=== PATIENT | male | born 1970 | race Caucasian/White ===

== ENCOUNTER 2020-06-12 10:30 | Outpatient (RCR) | payer OTHER, SELFPAY ==
--- NOTE | 2020-05-24 16:28 | PCPTNOTE ---
Electrical stim removed from Plan of care due to pt PMH of lung nodules that they are watching and 50# wt loss that is unexplained. Discussed with pt by Shruthi Morin and instructed him NOT to use his home TENS.
--- NOTE | 2020-06-10 08:21 | PCPTNOTE ---
Pt called and canceled appointment this date due to being awake all night because of pain.
--- NOTE | 2020-06-12 11:22 | PTOPEVAL ---
PHYSICAL THERAPY RE-EVALUATION and HOLD of PT treatment 06-12-2020 Madan has received 8 PT sessions, from May 16 to today. His called and canceled one session, due to not sleeping and having more pain. Compared to the initial evaluation: his pain rating is worst; walking test for 2 minutes is less distance; 5 reps sit/stand is few seconds less; hamstring length and LE strength are about the same; Traction and heat did give him some temporary relief from the back pain, but he feels it may have increased his pain later in the day. Discussed with him aquatic exercises as an option for continued therapy. He wants to see the neurosurgeon and see what the recommendations are from neurosurgeon. Madan will continue to use heat, stretching and positional changes as ways to help manage his pain. Will HOLD PT at this time. If PT is to continue, he will need additional PT orders to resume therapy. His chart will be kept open for 4 weeks, if orders are not received, he will be discharged at that time. Please review, sign, date and return this reevaluation report RONALD. I agree with and certify that the following plan of care is medically necessary. Referring Physician Date Attending Provider: DARREN Carey *PT Outpatient Re- Evaluation Document 06/12/20 10:35 ZACHARY (Rec: 06/12/20 11:22 ZACHARY [id number]) Subjective Information Madan reports: back is worse Query Text:As Reported By Patient/ the past few days, not sure Family why--did not do anything to hurt it; more problems with sleeping and moving; does not yet have the appointment time for the neurosurgeon referral ; Oswestry self assessment functional score 70%; He voiced frustration with the continued pain and burning that limits what he can do feel helpless and worthless-- cannot do anything around the house but dishes and cannot work . Pain Assessment Timing of Pain Assessment Timing of Pain Assessment Assessment Pain Scale Pain Scale Used Numeric (1 - 10) Self Report Pain Assessment Bilateral Lower Back Reported Pain Level 8 Radicular Pain Location B lateral hips to anterior thighs to above knees- constant burning Pain Frequency Chronic Lowest Pain Intensity 8 Greatest Pain Intensity 9 Pain Score Pain Score 8: Self Report Lower Extremity Range of Motion General Lower Extremity Range of Motion Gross Lower Extremity Range of Motion supine hamstring length with Comments 90-90 position: R and L 60'; supine trunk rotation to R
--- NOTE | 2020-07-19 11:15 | PCPTNOTE ---
PHYSICAL THERAPY DISCHARGE 07-19-2020 Attending Provider: Wendy Kim, [employer]ER-BC Patient:Madan Gerber Date of :1970 Madan has not returned with additional PT orders, for any further treatments since the reevaluation on 06/12/2020, therefore he will be discharged at this time. Refer to the reevaluation for his status at the last session. Thank you for referring Mr. Gerber to [facility]. Please review, sign, date and return this discharge summary RONALD. I have been updated about the patient's current status and I agree with discharge from the above service at this time. Referring Physician Date
== END 2020-07-22 09:17 | disposition home or self-care (01) ==
LOC: ANHPT 10:30
PROVIDERS: PCP Nurse Practitioner Family; Visit Provider Nurse Practitioner Family
DX: M54.16 Radiculopathy, lumbar region (principal); M48.061 Spinal stenosis, lumbar region without neurogenic claudication
CPT/HCPCS: 97012; 97014; 97110; 97161; G0283

== ENCOUNTER 2020-11-22 10:09 | Observation (INO) | payer OTHER, SELFPAY ==
[2020-11-22] VITALS (24 sets, daily range): BP systolic 149–177; BP diastolic 68–98; PULSE 66–78; RESP 14–21; TEMP 35.9–36.6; O2SAT 96–100
--- NOTE | ~2020-11-22 | CT_ITS ---
EXAMINATION: CT brain wo con EXAM DATE: 11/22/2020 12:08 INDICATION: Slurred speech. TECHNIQUE: Spiral CT of the head was performed without contrast. Axial, coronal and sagittal images were reviewed. The dose-length product (DLP) for this examination was 681.00 mGy-cm. The exposure w as tailored according to patient size, and iterative reconstruction (ASIR) was used as additional dos e reduction technique. There is no prior study for comparison. FINDINGS: There is no acute intraparenchymal hemorrhage. No evidence of intraparenchymal brain mass lesion. No evidence of acute infarction. Please note that initial head CT has limited sensitivity f or small or acute infarctions. There is moderate periventricular and subcortical hypodensity, nonspec ific but probably related to small vessel ischemic disease. There is mild prominence of the sulci a nd ventricles related to cerebral atrophy. There is intracranial carotid arteriosclerosis. There a re no extra-axial collections. There is no mass effect or midline shift. The orbits are unremarkabl e. Soft tissue is unremarkable. The visualized sinuses and mastoid air cells are well aerated. IMPRESSION: 1. No acute intracranial findings. 2. 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 Reviewed, dictated and finalized at location B. ING MANAGER
--- NOTE | ~2020-11-22 | XR_ITS ---
EXAMINATION: XR chest 1V portable EXAM DATE: 11/22/2020 11:15 INDICATION: Transient alteration of awareness. TECHNIQUE: Portable AP frontal chest x-ray was obtained. Comparison is made to prior examination from 05/10/2019. FINDINGS: The lungs are clear. There are no pleural effusions. Cardiac silhouette is prominent but magnified on this AP technique. There is no pneumothorax suspected. The bones and soft tissues are unremarkable. IMPRESSION: No acute cardiopulmonary findings. Reviewed, dictated and finalized at location B. FERRIER
--- NOTE | 2020-11-22 10:33 | ECG_ITS ---
Measurements Intervals [place] Rate: 77 P: 39 [place]: 179 QRS: -10 QRSD: 104 T: 21 QT: 362 QTc: 410 Interpretive Statements SINUS RHYTHM CONSIDER INFERIOR INFARCT, AGE INDETERMINATE BORDERLINE ST-T WAVE ABNORMALITY- LATERAL LEADS ABNORMAL ECG Electronically Signed On 11-22-2020 10:45:25 PBX TECHNICIAN by Ricardo Engle D.O.
--- NOTE | 2020-11-22 10:33 | ED.AMS ---
HPI - Altered Mental Status General Chief Complaint: Syncope Stated Complaint: SYNCOPE, SLURRED SPEECH Time Seen by Provider: 11/22/20 10:25 History of Present Illness HPI narrative: 50 yo male w/ h/o DM presents to the ED for AMS. Last known normal was last night. When his left for work this morning he was still in bed. She returned home around 9 to find him face down on the bedroom floor. She was able to wake him up, and get him back into bed, but he was acting strange and confused. Seemed to clear briefly, but now confused again. He is only occasionally answering my questions. He is not able to provide any details. History limited by mental status Related Data Home Medications Medication Instructions Recorded Confirmed amlodipine 10 mg PO DAILY 11/22/20 11/22/20 atorvastatin 10 mg PO HS 11/22/20 11/22/20 diclofenac sodium 75 mg PO DAILY 11/22/20 11/22/20 gabapentin 1,200 mg PO HS 11/22/20 11/22/20 gabapentin 300 mg PO BID 11/22/20 11/22/20 hydrocodone-acetaminophen 1 tablet PO TID 11/22/20 11/22/20 insulin glargine [Lantus U-100 10 unit SUBCUT HS 11/22/20 11/22/20 Insulin] sitagliptin [Januvia] 100 mg PO DAILY 11/22/20 11/22/20 Allergies Allergy/AdvReac Type Severity Reaction Status Date / Time No Known Allergies Allergy Verified 11/22/20 16:47 Review of Systems Review of Systems: ROS unobtainable: Yes unobtainable due to mental status PMFSH Past Medical History Medical History (Updated 11/22/20 @ 18:23 by Jorge Tarango MD) Diabetes mellitus HTN (hypertension) Social History Social History Smoking packs per day: 1 Smoking cigarettes per day: 20.0 Years smoked: 30 Smoking pack-years: 30.00 Smoking status: Current every day smoker Tobacco type: cigarettes Alcohol intake: never Substance use: never Substance use type: does not use Gender identity (if verbalized by the patient): Male Spiritual care concerns: No Exam Const: General: no acute distress and confusion Nutritional Appearance: well nourished Other: lethargic HENMT: Head: normal to inspection Mouth: Yes moist mucous membranes Eyes: Conjunctivae: conjunctivae normal Pupils: Equal, round and reactive pupils present EOM: EOMs intact bilaterally Resp: Effort & Inspection: normal respiratory effort Auscultation: clear to auscultation bilaterally Cardio: Rate: regular rate Rhythm: regular rhythm GI: GI Palp: Yes Soft to palpation and No Tenderness to palpation present (GI) Skin: General skin exam: normal color Rashes: no rashes Wounds: no wounds Neuro: General: moves all extremities and CN's II-XI intact bilaterally Cranial nerves: Yes Nystagmus not present Other: oriented x2 paucity of speech. Poor effort on strength testing Extrem: General: normal to inspection and no edema Course Vital Signs Vital signs: Vital Signs Temperature 36.6 C 11/22/20 10:22 Pulse Rate 74 11/22/20 10:22 Respiratory Rate 20 11/22/20 10:22 Blood Pressure 173/69 H 11/22/20 10:22 Pulse Oximetry 96 11/22/20 10:22 Temperature 35.9 C L 11/22/20 15:21 Pulse Rate 74 11/22/20 16:00 Respiratory Rate 18 11/22/20 15:21 Blood Pressure 177/74 H 11/22/20 15:21 Pulse Oximetry 99 11/22/20 15:21 MDM - Altered Mental Status MDM Narrative Medical decision making narrative: Work-up largely negative. Cannot rule out CVA. symptoms seem to wax and wane. Could be volitional. Medical Records Attestation: I reviewed the patient's medical records. Lab Data Attestation: I reviewed the patient's lab results. Result diagrams: 11/22/20 10:41 11/22/20 10:41 Labs: Lab Results 11/22/20 11/22/20 11/22/20 Range/Units 10:25 10:41 10:41 WBC 8.4 (4.5-10.0) K/mm3 RBC 5.45 (4.6-6.20) M/mm3 Hgb 16.5 (14.0-18.0) g/dL Hct 46.7 (42.0-52.0) % MCV 85.7 (80-100) fl MCH 30.3 (26-34) pg MCHC 35.3 (32-36) g/dl RDW 12.7 (11.5-14.5) % Plt Coun
[2020-11-22 10:50] LABS: Basophils Percent Auto 0.5 % (0.2-1.2); Eosinophils Absolute Auto 0.4 K/mm3 (0-0.3); Eosinophils Percent Auto 4.4 % (0-4.4); Hematocrit 46.7 % (42.0-52.0); Hemoglobin 16.5 g/dL (14.0-18.0); Immature Granulocyte Absolute 0.03 K/mm3 (0.00-0.031); Immature Granulocyte Percent A 0.4 % (0-0.5); Lymphocytes Absolute Auto 1.75 K/mm3 (0.9-3.2); Lymphocytes Percent Auto 20.8 % (18.3-44.2); Mean Corpuscular HGB Conc 35.3 g/dl (32-36); Mean Corpuscular Hemoglobin 30.3 pg (26-34); Mean Corpuscular Volume 85.7 fl (80-100); Mean Platelet Volume 8.9 fl (7.4-10.4); Monocytes Absolute Auto 0.6 K/mm3 (0.1-0.6); Neutrophils Absolute Auto 5.7 K/mm3 (1.3-6.7); Neutrophils Percent Auto 66.9 % (45.5-73.1); Platelet Count Result 263 k/mm3 (150-375); Red Blood Count 5.45 M/mm3 (4.6-6.20); Red Cell Distribution Width 12.7 % (11.5-14.5); White Blood Count 8.4 K/mm3 (4.5-10.0)
[2020-11-22 11:02] LABS: Add Urine Microscopic? YES; Appearance Urine Clear (Clear); Bilirubin Urine Negative (Negative); Blood Urine Negative (Negative); Color Urine Yellow (Yellow); Glucose Urine UA 3+ mg/dL (Negative); Ketones Urine Negative (Negative); Leukocyte Esterase Ur Negative LEU/UL (Negative); Mucus Urine Rare /lpf; Nitrate Urine Negative (Negative); Protein Urine Negative (Negative); Specific Grav Ur 1.037 (1.001-1.035); WBC Urine 0-3 /hpf
[2020-11-22 11:02] LABS: Alveolar/Arterial O2 Gradient 33.6 mmHg; Base Excess ABG -2.1 mEq/l (+/-2.0); Fractional Inspired Oxygen 21 %; Oxygen Content ABG 19.7 %vol (16.0-22.0); Oxygen Saturation ABG 94.9 % (95.0-100.0); Oxyhemoglobin 89.3 % THb (90.0-100.0); PO2 FiO2 Ratio Arterial Blood 3.48 %; Total Hemoglobin 15.7 g/dL (12.0-18.0); pH ABG 7.404 (7.350-7.450)
[2020-11-22 11:02] LABS: INR 0.9; Partial Thromboplastin Time 23.8 SECONDS (22.3-36.8)
[2020-11-22 11:03] LABS: Device ROOM AIR; Modified Allen's Test Pass; Site Drawn LEFT RADIAL
[2020-11-22 11:05] LABS: Ammonia < 9 umol/L (9-30); Ethanol < 10 mg/dL (<10)
[2020-11-22 11:06] LABS: Alanine Aminotransferase 24 U/L (4-50); Albumin Level 4.1 g/dL (3.5-5.1); Alkaline Phosphatase 72 U/L (38-126); Anion Gap 6 mmol/L (8-16); Aspartate Amino Transferase 23 U/L (17-59); Bilirubin,Total 0.5 mg/dL (0.2-1.3); Blood Urea Nitrogen 10 mg/dL (9-20); Calcium 8.9 mg/dL (8.4-10.2); Carbon Dioxide 26 mmol/L (22-30); Chloride 104 mmol/L (98-107); Estimated Glomerular Filt Rate > 60; Glucose 258 mg/dL (75-110); Potassium 4.1 mmol/L (3.4-5.0); Sodium 136 mmol/L (137-145)
[2020-11-22 11:06] LABS: Lactic Acid Reflex 1.8 mmol/L (0.7-2.1)
[2020-11-22 11:08] LABS: Glucose Point of Care 243 (65-105)
--- NOTE | 2020-11-22 14:30 | PM.IMHP ---
H&P: HPI History of Present Illness Date/Time: 11/22/20 14:30 Chief Complaint: Altered mental status. Narrative: This is a 50-year-old male with insulin-dependent diabetes, hypertension, dyslipidemia, and peripheral vascular disease who presented to the emergency department earlier today via private vehicle from home with reports of altered mental status. He was in his usual state of health when he went to bed last night. His got up this morning left for work at about 07:45 and at that time the patient was still sleeping. About 2 hours later she tried to contact him and he did not respond, so she went home to check on him and he was found face down on the floor in her bedroom. She tried to wake him up by shaking him however he was unresponsive but eventually came to. He then was slurring his speech and seemed to be confused, prompting her to bring him to the hospital for evaluation. He does not recall how he got on the floor today but he is alert and oriented x4 at the time my evaluation. There was no mention of bowel or bladder incontinence and no evidence of injury or tongue bite. He does not have many complaints at the time my evaluation aside from the fact that he does not want to stay in the hospital. He denies recent change in medication, alcohol use, and drug use. No history of syncope or seizure. No recent cold or flu symptoms. He denies headache, focal weakness, and paresthesias. No dysphagia or dysarthria (although I do appreciate some mild slurred speech). Review of Systems Review of Systems: Narrative: 12 systems were reviewed with pertinent positives and negatives as per HPI. No recent cold or flu symptoms. He denies fever, chills, and sweats. He suffers from claudication of his lower extremities due to peripheral vascular disease and is followed by Dr. Stark in [place]. As of yet they have not done any intervention on that. He has pretty significant paresthesias in his feet and especially his toes due to neuropathy from the diabetes. No blurry vision, polydipsia, or polyuria. Except as documented, all other systems were reviewed and are negative. [facility] Past Medical History Medical History (Updated 11/22/20 @ 21:22 by Dana Aguilar PA-C) Chronic back pain Diabetic peripheral neuropathy Dyslipidemia Essential hypertension Insulin dependent type 2 diabetes mellitus Peripheral vascular disease Tobacco abuse Surgical History Surgical History (Updated 11/22/20 @ 20:48 by Dana Aguilar PA-C) History of hemorrhoidectomy History of lymph node biopsy With benign pathology. History of tonsillectomy Family History Family History (Updated 11/22/20 @ 20:49 by Dana Aguilar PA-C) Mother Hypertension Sibling Acute myocardial infarction Heart disease Social History Social History (Updated 11/22/20 @ 20:50 by Dana Aguilar PA-C) Social History: Surrogate decision maker: Goldie Gerber, . Code status: Full code. Smoking packs per day: 1 Smoking cigarettes per day: 20.0 Years smoked: 30 Smoking pack-years: 30.00 Smoking status: Current every day smoker Tobacco type: cigarettes Alcohol intake: never Substance use: never Substance use type: does not use Other substance usage details: Has tried medical marijuana for back pain. Additional living arrangements comments: Lives in [place] with his . Additional occupation/education comments: Unemployed. Gender identity (if verbalized by the patient): Male Spiritual care concerns: No Meds Home Medications and Allergies Home Medications Medication Instructions Recorded Confirmed Type amlodipine 10 mg PO DAILY 11/22/20 11/22/20 History atorvastatin 10 mg PO HS 11/22/20 11/22/20 History diclofenac sodium 75 mg PO DAILY 11/22/20 11/22/20 History gabapentin 1,200 mg PO HS 11/22/20 11/22/20 History gabapentin 300 mg PO BID 11/22/20 11/22/20 History hydrocodone-acetaminophen 1 tabl
--- NOTE | 2020-11-22 15:15 | ADMGEN ---
This patient, Madan Gerber, was admitted to Medical Room 343-01. Patient/family oriented to hospital policies and general routines including ID bracelet, bed and alarms, visiting hours, pain management, procedures, bathroom and other care routines, personal items, smoking policy, room service/diet, and visiting hours. Information on how to activate the Rapid Response Team has been discussed. Patient/Family are encouraged to report perceived risks to care and to ask questions if they do not understand what they are told or what they should do.
--- NOTE | 2020-11-22 16:48 | PC.NURSE ---
Addendum entered by Linda Nathan RN 11/22/20 16:52: Patient also stated that he would unplug his alarm because you people are holding me against my will . RN continued to explain that the patient agreed to admission and has the right to sign out AMA. Patient is a fall risk r/t history of falls, thus the alarm is necessary. Original Note: Patient continuously states I don't want to be here ; Why do I have to stay when I feel fine ; uncooperative with staff; intentionally setting off bed alarm; belligerent to staff. Hospitalist aware.
[2020-11-22 17:26] LABS: Glucose Point of Care 161 (65-105)
--- NOTE | 2020-11-22 18:55 | PCDIET ---
Patient signed out AMA. RN called patient's spouse to confirm that patient had transportation. After signing AMA paperwork, patient stated that it is nothing against you personally, but I don't like waiting and I have been here for hours and nothing has been done. You probably have a float doctor who is rounding on other floors. Patient denies having had the option to leave directly from the ED, however, RN received in report that option had been provided to patient and he had opted to stay.
== END 2020-11-22 18:52 | disposition left against medical advice (07) ==
LOC: ANHED 11:35 → ANH3MED 14:13
PROVIDERS: Admitting Provider Internal Medicine; Emergency Provider Emergency Medicine; PCP Family Medicine; Visit Provider Internal Medicine
DX: R41.82 Altered mental status, unspecified (principal); R41.89 Other symptoms and signs involving cognitive functions and awareness; I10 Essential (primary) hypertension; R55 Syncope and collapse; E78.5 Hyperlipidemia, unspecified; R47.81 Slurred speech; E11.42 Type 2 diabetes mellitus with diabetic polyneuropathy; E11.51 Type 2 diabetes mellitus with diabetic peripheral angiopathy without gangrene; M54.9 Dorsalgia, unspecified; F17.210 Nicotine dependence, cigarettes, uncomplicated; R94.31 Abnormal electrocardiogram [ECG] [EKG]; Z79.899 Other long term (current) drug therapy; Z79.4 Long term (current) use of insulin
CPT/HCPCS: 36415; 36600; 70450; 71045; 80053; 80307; 81001; 82140; 82805; 82948; 83605; 85025; 85610; 85730; 93005; 99285; G0378; G0379

== ENCOUNTER 2021-10-06 15:27 | Outpatient (RCR) | payer OTHER, SELFPAY ==
--- NOTE | 2021-10-06 15:55 | PCPTNOTE ---
PHYSICAL THERAPY DISCHARGE Referring physician: Devora Oswald PA-C Mr. Gerber was present to complete an evaluation for the dx of peripheral neuropathy/gait instability on 10/06/21 per an order received. The patient and PT had a lengthy conversation regarding his diagnosis/prognosis/potential and skilled PT needs. The patient reports his main problem being an intolerance to any standing/walking activity more than 10 minutes due to pain/weakness at his LE's. The patient has an extensive hx with back issues that he has received injections for and has an extensive hx with uncontrolled DM, with both affecting his limitations. The patient feels that PT intervention with balance exercises/circulatory exercises will not improve his complaint. After extensive discussion, it is my opinion that skilled PT intervention will not improve the patient's complaint of activity tolerance limits. The patient did not want to complete an assessment of his balance/strength etc. The patient had no signs of loss of balance with his gait when walking to the PT department and gait deviations are consistent with neuropathy symptoms. The patient and PT agreed to not complete the eval and treatment at this time. Bonnie Estes PT 10/06/21
== END 2021-10-07 10:13 | disposition home or self-care (01) ==
LOC: ANHPT 15:27
PROVIDERS: PCP Family Medicine; Visit Provider Family Medicine
DX: R26.81 Unsteadiness on feet (principal); G95.19 Other vascular myelopathies; G62.9 Polyneuropathy, unspecified
CPT/HCPCS: 99199